=== PATIENT | female | born 1960 | race African-American/Black ===

== ENCOUNTER 2019-04-05 11:35 | Emergency (ER) | payer BC, MEDICAID, OTHER ==
[~2019-04-05] VITALS: Ht 165.1 cm; Wt 86.4 kg
[2019-04-05 11:40] VITALS: BP 160/101
== END 2019-04-05 12:36 ==
LOC: ED 12:30
DX: S90.32XA Contusion of left foot, initial encounter (principal); W01.0XXA Fall on same level from slipping, tripping and stumbling without subsequent striking against object, initial encounter; Y93.89 Activity, other specified; Y92.410 Unspecified street and highway as the place of occurrence of the external cause; Y99.8 Other external cause status
CPT/HCPCS: 99283